=== PATIENT | female | born 1995 | race Caucasian/White ===

== ENCOUNTER 2017-04-06 09:36 | Emergency (ER) | payer OTHER, SELFPAY ==
--- NOTE | 2017-04-06 11:44 | RAD ---
THREE VIEWS OF THE RIGHT ANKLE: INDICATION: Right ankle pain. COMPARISON: None. FINDINGS: There is an osteochondral defect involving the medial talar dome measuring 8.8 mm. There is soft tis sheyla swelling the right ankle. No additional acute osseous abnormality is evident. IMPRESSION: 1. 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 A followup MRI of the right ankle is recom mended. 2. Soft tissue swelling of the right ankle. POS: JOSE RAFAEL
== END 2017-04-06 12:25 | disposition home or self-care (01) ==
LOC: NAV ERS 09:36
DX: S93.421A Sprain of deltoid ligament of right ankle, initial encounter (principal); S10.83XA Contusion of other specified part of neck, initial encounter; I10 Essential (primary) hypertension; F41.9 Anxiety disorder, unspecified; F32.9 Major depressive disorder, single episode, unspecified; F90.9 Attention-deficit hyperactivity disorder, unspecified type; Z79.899 Other long term (current) drug therapy; V49.9XXA Car occupant (driver) (passenger) injured in unspecified traffic accident, initial encounter